=== PATIENT | female | born 1945 | race Caucasian/White ===

== ENCOUNTER 2017-01-11 20:45 | Emergency (ER) | payer MEDICARE ==
[~2017-01-11] VITALS: Ht 167.6 cm; Wt 70.2 kg
[~2017-01-11 20:45] MED LIST: LEXA20TA PO; SPIRCAP INH; SYNT88TA PO
[2017-01-11 20:48] VITALS: BP 154/57; PULSE 85; RESP 20; TEMP 98; O2SAT 96
[2017-01-11] MEDS ORDERED: SYNT88TA PO (20:58)
[2017-01-11] MEDS ORDERED: LEXA20TA PO (20:59)
--- NOTE | 2017-01-11 20:59 | PD ---
HPI Chief Complaint: Injury Time Seen by Provider: 20:55 Travel History International Travel<30 days: No Contact w/Intl Traveler<30days: No Traveled to known affect area: No History of Present Illness HPI 71 YO F presents to the ED for evaluation of right 5th digit pain. Described as throbbing. Onset after smashing it in a metal door around 3 to 4:00 this afternoon. Patient washed the wound and applied a dressing, has taken no medications for pain. States last tetanus shot was about 4 years ago. PFSH Past Medical History Depression: Yes Cancer: Yes (BREAST) COPD: Yes Respiratory: Yes (COPD) Radiation Therapy: Yes (RIGHT BREAST) Thyroid Disease: Yes (HYPOTHYROIDISM) ?: Not Menopausal: Yes : 3 Para: 1 Miscarriage: 2 Past Surgical History Eye Surgery: Yes (RIGHT EYE, PROSTHESIS S/P INJURY AGE 6) Gynecologic Surgery: Yes (LEFT LUMPECTOMY) Other Surgery: Yes Social History Alcohol Use: Yes ("SELDOM") Tobacco Use: Yes (1/2 PPD) Substance Use: No Allergies-Medications (Allergen,Severity, Reaction): Coded Allergies: No Known Allergies (Unverified , 01/11/17) Reported Meds & Prescriptions Reported Meds & Active Scripts Active Ibuprofen 800 Mg Tab 800 Mg PO Q8H Reported Lexapro (Escitalopram Oxalate) 20 Mg Tab 20 Mg PO DAILY Synthroid (Levothyroxine Sodium) 88 Mcg Tab 88 Mcg PO DAILY Review of Systems Except as stated in HPI: all other systems reviewed are Neg Physical Exam Narrative GENERAL: Well-nourished, well-developed white female in no acute distress.. SKIN: Focused skin assessment warm/dry. HEAD: Normocephalic. EYES: No scleral icterus. No injection or drainage. NECK: Supple, trachea midline. No JVD or lymphadenopathy. CARDIOVASCULAR: Regular rate and rhythm without murmurs, gallops, or rubs. RESPIRATORY: Breath sounds equal bilaterally. No accessory muscle use. GASTROINTESTINAL: Abdomen soft, non-tender, nondistended. MUSCULOSKELETAL: No cyanosis, or edema. FOCUSED RIGHT UPPER EXTREMITY EXAM: 2+ radial pulse. Patient regained full, active, painless ROM of each digit and wrist of the extremity. There is a partial amputation of the palmar aspect of the tuft of the fifth finger. The nail and nailbed are intact. No active bleeding. Cap refill less than 2 seconds. Sensation intact to light touch distally. BACK: Nontender without obvious deformity. No CVA tenderness. Data Data Last Documented VS Vital Signs Date Time Temp Pulse Resp B/P Pulse Ox O2 Delivery O2 Flow Rate FiO2 01/11/17 20:48 98.0 85 20 154/57 96 Orders Finger ([id number]) (01/11/17 20:55) Ice/Cold Pack (01/11/17 20:59) Lidocaine Pf 1% Inj (Xylocaine-Mpf 1% In (01/11/17 21:15) Iv Access Insert/Monitor (01/11/17 21:17) Cefazolin Inj (Ancef Inj) (01/11/17 21:30) Povidone Iodine 10% Oint (Betadine 10% O (01/11/17 22:00) MDM Medical Decision Making Medical Screen Exam Complete: Yes Emergency Medical Condition: Yes Differential Diagnosis Partial amputation versus tuft fracture versus laceration versus other Narrative Course 71 YO F presents to the ED for evaluation of right 5th digit pain. Described as throbbing. Onset after smashing it in a metal door around 3 to 4:00 this afternoon. Patient washed the wound and applied a dressing, has taken no medications for pain. States last tetanus shot was about 4 years ago. Vitals reviewed. Physical exam reveals a partial amputation of the tuft of the fifth digit of the right hand. X-ray reveals tuft fracture. IV was established. Patient was administered 1 g Ancef. Digital block was performed and the wound was explored. I discussed the patient with Dr. Saunders, sent him pictures by phone. He recommends wet to dry, nonstick dressing, 800 mg ibuprofen 3 times a day, will follow up with the patient in the office at 9 AM in 2 days. I discussed this plan of care with the patient. Patient was instructed to keep the wound clean, dry, covered, follow up as discussed, return to the ED for any concerns prior to appointment. The patient and her family indicated understanding instructions and are agreeable to the care plan. She is stable and discharged home. Procedures Procedure Narrative WOUND EXPLORATION: LOCATION: fifth digit of the right hand. REPAIR: A digital block was performed with 1% lidocaine. Good anesthesia was obtained. The wound was copiously irrigated and explored without evidence of foreign body, tendon injury or neurovascular injury. A sterile, nonstick dressing was applied. The patient was advised to keep the dressing clean and dry. Patient tolerated the procedure well. Diagnosis Primary Impression: Partial traumatic transphalangeal amputation of finger Qualified Code: S68.629A - Partial traumatic transphalangeal amputation of finger, initial encounter Referrals: Echo Saunders MD Patient Instructions: Finger Amputation (ED), General Instructions Additional Instructions: Rest, hydrate. Do not change the dressing until seen by Dr. Saunders. Elevate the extremity to reduce throbbing pain. 800 mg ibuprofen every 8 hours to reduce pain and inflammation. Stopped taking Lexapro until you see Dr. Saunders. Follow-up with Dr. Saunders at 9 AM on Wednesday. Return to the ED for any urgent or emergent medical condition. Med/Other Pt SpecificInfo: Prescription(s) given Scripts Ibuprofen 800 Mg Ocp212 Mg PO Q8H #20 TAB Ref 0 Prov:Robert Jolly MD 01/11/17 Disposition: 01 DISCHARGE HOME Condition: Stable Sienna Snell Jan 11, 2017 20:59
[2017-01-11] MEDS ORDERED: LIDOCAINE HCL 1% 50 ML VIAL INFIL ONE (21:00)
[2017-01-11] MEDS ORDERED: LIDOCAINE HCL 1% PF 30 ML VIAL INFIL ONE (21:15)
--- NOTE | 2017-01-11 21:22 | RADRPT ---
EXAM DATE/TIME: 01/11/2017 21:00 [facility] COMPARISON: No previous studies available for comparison. INDICATIONS : Right 5th digit slammed in door. MEDICAL HISTORY : None. SURGICAL HISTORY : None. ENCOUNTER: Initial ACUITY: 1 day PAIN SCORE: 10/10 LOCATION: Right hand, 5th digit FINDINGS: There is an impacted fracture of the tuft of the 5th digit distal phalanx, best seen on the lateral v iew. The middle and proximal phalanx appear intact. Advanced degenerative changes in the interphala ngeal joints. CONCLUSION: Impaction fracture of the distal tuft with palmar displacement of the fracture fragment. Dalton Joaquin MD on January 11, 2017 at 21:18 Board Certified Radiologist. This report was verified electronically.
[2017-01-11] MEDS ORDERED: POVIDONE IODINE 10% OINT 30 GM TUBE TOPICAL ONE (22:00)
[2017-01-11] MEDS ORDERED: IBUP800T23 PO (22:04)
[2017-01-15] MEDS ORDERED: IBUP800T23 PO (11:49)
== END 2017-01-11 22:30 | disposition home or self-care (01) ==
LOC: PHEFT 20:45
DX: S68.626A Partial traumatic transphalangeal amputation of right little finger, initial encounter (principal); S68.126A Partial traumatic metacarpophalangeal amputation of right little finger, initial encounter; S62.636B Displaced fracture of distal phalanx of right little finger, initial encounter for open fracture; W23.0XXA Caught, crushed, jammed, or pinched between moving objects, initial encounter; Y93.9 Activity, unspecified; Y92.9 Unspecified place or not applicable; J44.9 Chronic obstructive pulmonary disease, unspecified; E03.9 Hypothyroidism, unspecified; F17.210 Nicotine dependence, cigarettes, uncomplicated
CPT/HCPCS: 64450; 73140; 96365; 99284; J0690

== ENCOUNTER → 2017-01-15 | Day surgery (SDC) | payer MEDICARE ==
[~2017-01-15] VITALS: Ht 167.6 cm; Wt 61.0 kg
[~2017-01-15] MED LIST changes: +BUPIVACAINE HCL PF 0.5% 30 ML VIAL ONE; +CHLORHEXIDINE GLUCONATE 2 % 1 PACK (2 CLOTHS) TOPICAL PRN; +DEXT 5%-NACL 0.45% 1000 ML INJ 1,000 ML IV SCH; +IBUP800T23 PO; +INSULIN HUMAN REGULAR 1,000 UNITS/10 ML VIAL SQ PRN; +LACTATED RINGER'S 1000 ML IV PRN; +METOPROLOL TARTRATE 25 MG TAB PO PRN; +MIDAZOLAM HCL 2 MG/2 ML VIAL ONE; +ONDANSETRON HCL 4 MG/2 ML VIAL IV PUSH ONE; +POVIDONE IODINE 10% OINT 1 PACKET TOPICAL ONE; +POVIDONE IODINE 5% (ANTISEPSIS KIT) 4 APPLICATIONS EACH NARE PRN; +PROPOFOL 200 MG/20 ML AMP IV ONE; +SODIUM CHLORID 0.9% 500 ML IV PRN; +SODIUM CHLORIDE 0.9% FLUSH 5 ML FLUSH IVF PRN; +SODIUM CHLORIDE 0.9% FLUSH 5 ML FLUSH IVF SCH; -SPIRCAP INH; +ceFAZolin 2 GM PREMIX 50 ML IV SCH
--- NOTE | 2017-01-15 08:10 | HP.UPD ---
H&P Update Date: Jan 15, 2017 Note The Pre-Admit History and Physical Examination regarding the above named patient was reviewed (including, but not limited to, vital signs, medications, allergies, co-morbid conditions), and upon re-examination it is noted that: Indicated with "X" x - the patient's condition has not significantly changed since the last examination. [] - the patient's condition has changed since the last examination. Changes: Echo Saunders MD Jan 15, 2017 08:10
[2017-01-15 08:19] LABS: HEMATOCRIT 38.3 % (35.0-46.0); MEAN CELL VOLUME 88.7 FL (80.0-100.0); MEAN CORPUSCULAR HEMOGLOBIN 29.6 PG (27.0-34.0); MEAN CORPUSCULAR HGB CONC 33.4 % (32.0-36.0); PLATELET COUNT 221 TH/MM3 (150-450); RED BLOOD COUNT 4.32 MIL/MM3 (4.00-5.30); RED CELL DISTRIBUTION WIDTH 12.1 % (11.6-17.2); REVIEW FLAG FINAL; WHITE BLOOD COUNT 5.4 TH/MM3 (4.0-11.0)
[2017-01-15 08:22] VITALS: BP 154/72; PULSE 60; RESP 18; TEMP 98; O2SAT 99
[2017-01-15 11:45] VITALS: PULSE 60
--- NOTE | 2017-01-15 11:51 | HHI.PR ---
Immediate Post Op Note Procedure Date: Jan 15, 2017 Pre Op Diagnosis: (1) Partial traumatic transphalangeal amputation of finger Post Op Diagnosis: (1) Partial traumatic transphalangeal amputation of finger Surgeon: Echo Saunders Hris Developer(s): None Procedure: Cross finger flap from right ring finger to right fifth finger. Full-thickness skin graft from arm to donor site. Anesthesia: General Drains: None Tourniquet time (min at mmHg) 82 minutes at 220 mmHg Patient to: PACU Patient Condition: Good Date/Time of Procedure: SEE SURGICAL CARE RECORD Echo Saunders MD Jan 15, 2017 11:51
[2017-01-15 12:15] VITALS: PULSE 63; TEMP 98.7
[2017-01-15 12:35] VITALS: BP 149/78; PULSE 64; RESP 14; O2SAT 97
--- NOTE | 2017-01-15 13:52 | EKG ---
Date Performed: 01/15/2017 Time Performed: 08:37:28 PTAGE: 71 years EKG: SINUS BRADYCARDIA POSSIBLE RIGHT VENTRICULAR CONDUCTION DELAY BORDERLINE ECG Compared to pr ior tracing no significant change PREVIOUS TRACING : 10/16/2014 22.09 DOCTOR: Jairo Montoya Interpretating Date/Time 01/15/2017 13:50:11
--- NOTE | 2017-01-16 19:41 | MP ---
cc: ARTHUR TY M.D. DATE OF SURGERY: 01/15/2017. PREOPERATIVE DIAGNOSIS: Partial traumatic amputation tip of the right fifth finger. POSTOPERATIVE DIAGNOSIS: Partial traumatic amputation tip of the right fifth finger. OPERATIVE PROCEDURE PERFORMED: 1. Cross finger flap from right ring finger to right fifth finger. 2. Full-thickness skin graft from arm to donor site. SURGEON: Arthur Ty M.D. ANESTHESIA: General. INDICATIONS FOR THE PROCEDURE: This is a 71-year-old female who had the tip of her right fifth finger on the volar pad amputated from a heavy metal door. FINDINGS: At the completion of the procedure, the entire area which had been injured was covered with a cross-finger flap. It measured 2 cm x 1.5 cm in greatest dimension. The skin graft was taken from the arm. TOURNIQUET TIME: Tourniquet time was 82 minutes. DESCRIPTION OF THE PROCEDURE IN DETAIL: The patient was seen preoperatively where the sites and side were identified and marked. The patient was then taken to the operating room and placed in a supine position. Her identity was checked against the arm band and the consent form site and side confirmed, time-out called prior to beginning the procedure. The right upper extremity was prepped with Hibiclens and draped in the usual sterile fashion. The site of the injury was measured and a skin graft was planned as a 2 x 1.5 cm graft from the arm. The area was designed as an ellipse and it was infiltrated with bupivacaine 0.5% plain. The arm was exsanguinated and the tourniquet inflated to 220 mmHg. A #15 blade was used to incise along the ellipse down through the skin down to the subcutaneous tissue. The ellipse was then harvested and the fat was removed from the base. It then placed into a moist saline sponge on the table and put in a cup. Undermining was carried out and the wound was closed with 4-0 Vicryl and 4-0 Prolene in a subcuticular fashion. Attention then turned to the hand where the injured area was debrided. It was an excisional debridement. The edges of the wound were completely incised. It was cleansed until all of the debris was removed. The cross-finger flap was designed on the dorsal aspect of the ring finger 2 cm x 1.5 cm. It was incised along the three edges and the flap was elevated and sewn to the finger using 5-0 nylon suture material covering the entire defect. The skin graft was then placed on the donor area and shaped to size and sewn in with 5-0 nylon suture material. Several of the sutures were kept long in order to tie on the bolus. The graft was fixed to the extensor tendon and then several pie crusting incisions were made to allow for drainage. All the areas were covered with Povidone iodine and Adaptic and Telfa were placed on top of the wound along with the wet cotton balls which were then held in place with the 5-0 nylon sutures, which had been left long. Once this was secured and the flap was in place, a dressing was applied using Adaptic and Telfa over the flap. Telfa was placed between the flap and the fingers, gauze between the remainder of the fingers and a fluffy dressing was placed over the dorsal splint. The tourniquet was then released after 82 minutes of tourniquet time. Pressure was applied to the arm, which was then covered with Povidone iodine ointment, Telfa and dressing. The fingers pinked up adequately and the flap appeared to be adequately perfused. The patient was then taken from the operating room to the recovery room in satisfactory condition having tolerated the procedure well. The fingers had been infiltrated with double bupivacaine 0.5% plain as metacarpal head blocks at the beginning of the procedure. Postoperative instructions include keeping the arm elevated, keeping the area clean and dry and returning next week for followup. The patient was given a prescription for ibuprofen 800 every 8 hours as needed for pain. MD TIKI Holloway/WALT /11:58 AM /7:34 PM
== END | disposition home or self-care (01) ==
LOC: PHSDC 07:09
PROVIDERS: ATTEND Specialist
DX: S68.626A Partial traumatic transphalangeal amputation of right little finger, initial encounter (principal); E03.9 Hypothyroidism, unspecified; J44.9 Chronic obstructive pulmonary disease, unspecified; W23.1XXA Caught, crushed, jammed, or pinched between stationary objects, initial encounter; Z01.810 Encounter for preprocedural cardiovascular examination; Z01.818 Encounter for other preprocedural examination; Z85.3 Personal history of malignant neoplasm of breast
CPT/HCPCS: 00400; 15240; 15574; 36415; 85027; 93005; J0690; J2250; J2405; J3010; J7120